=== PATIENT | female | born 1950 | race Caucasian/White ===

== ENCOUNTER 2023-12-04 18:13 | Emergency (ER) | payer MEDICARE ==
[2023-12-04] MEDS ORDERED: Proparacaine 0.5% Opth 15 ML BOT ONE (19:09)
[2023-12-04] MEDS ORDERED: Fluorescein Opthalmic Strip ONE (19:09)
[2023-12-04] MEDS ORDERED: Erythromycin Base 0.5% Oint 1 GM TUBE ONE (19:27)
== END 2023-12-04 19:38 | disposition home or self-care (01) ==
LOC: CSHERS 18:13
DX: T15.92XA Foreign body on external eye, part unspecified, left eye, initial encounter (principal); I10 Essential (primary) hypertension; E11.9 Type 2 diabetes mellitus without complications; Z55.6 Problems related to health literacy
CPT/HCPCS: 99283

== ENCOUNTER 2023-12-25 23:53 | Inpatient (IN) | payer MEDICARE ==
[2023-12-26 00:46] LABS: #Eosinphils 0.2 10x3/uL (0.0-0.5); #Monocytes 1.1 10x3/uL (0.0-1.1); #Neutrophils 4.8 10x3/uL (1.5-8.4); %Basophils 0.3 % (0.0-2.0); %Eosinophils 2.5 % (0.0-6.0); %Lymphocytes 15.9 % (18.0-47.0); %Monocytes 14.6 % (0.0-10.0); %Neutrophils 66.4 % (40.0-75.0); Hematocrit 34.6 % (34.9-44.5); Hemoglobin 11.2 g/dL (12.0-15.5); Mean Corpuscular HGB CONC 32.4 g/dL (32.0-36.0); Mean Corpuscular Hemoglobin 26.9 pg (27.0-33.0); Mean Platelet Volume 11.7 fl (7.4-10.4); Platelet Count 310 10x3/uL (150-450); RBC Distribution Width 15.2 % (11.5-14.5); Red Blood Cell (RBC) Count 4.17 10x6/uL (3.90-5.03); White Blood Cell (WBC) Count 7.2 10x3/uL (3.5-10.5)
[2023-12-26 01:02] LABS: ALT (SGPT) 27 U/L (8-55); AST (SGOT) 27 U/L (5-34); Albumin 3.3 g/dL (3.4-4.8); Alkaline Phosphatase 47 U/L (40-110); Anion Gap 16 mmol/L (10-20); BUN (Urea Nitrogen) 48 mg/dL (9.8-20.1); Bilirubin, Total 0.4 mg/dL (0.2-1.2); Calc. Creatinine Clearance 0 mL/min (70-130); Calcium 8.8 mg/dL (7.8-10.44); Carbon Dioxide 17 mmol/L (23-31); Chloride 105 mmol/L (98-107); Estimated GFR 21; Globulin 2.5 g/dL (2.4-3.5); Glucose 156 mg/dL (83-110); Potassium 4.2 mmol/L (3.5-5.1); Protein, Total 5.8 g/dL (5.8-8.1); Sodium 134 mmol/L (136-145)
[2023-12-26 01:07] LABS: Critical Call Chem Troponin I NUR.AEB @ 0106; Troponin I 0.396 ng/mL (< 0.028)
[2023-12-26] MEDS ORDERED: Aspirin Chewable 81 MG TAB ONE (01:35)
[2023-12-26] MEDS ORDERED: Ondansetron PF 4 MG/2 ML Vial IVP PRN (02:29)
[2023-12-26] MEDS ORDERED: Glucagon 1 MG/ML KIT IM PRN (02:29)
[2023-12-26] MEDS ORDERED: Dextrose 5% in Water 1,000 ML IV PRN (02:29)
[2023-12-26] MEDS ORDERED: Dextrose 50% Abboject 50 ML SYRINGE SLOW IVP PRN (02:29)
[2023-12-26] MEDS ORDERED: Enoxaparin 80 MG (0.8 mL) SYRINGE SC SCH (04:00)
[2023-12-26] MEDS ORDERED: NOREPINEPHRINE 8 MG/250 ML-D5W 250 ML ONE (04:24)
[2023-12-26] MEDS ORDERED: Heparin 10,000 UNITS/ 10 ML VIAL ONE (04:24)
[2023-12-26] MEDS ORDERED: Heparin 25,000 units/D5W 500 ML ONE (04:25)
[2023-12-26 04:28] LABS: Hematocrit 35.4 % (34.9-44.5); Hemoglobin 11.4 g/dL (12.0-15.5); Platelet Count 273 10x3/uL (150-450)
[2023-12-26 04:45] LABS: Troponin I 0.348 ng/mL (< 0.028)
[2023-12-26] MEDS: Lactated Ringer's 500 ML IV SCH ×2 (04:56→12:30)
[2023-12-26 04:59] VITALS: BMI 34.0
[2023-12-26] MEDS: VANCOMYCIN 1.75 GM/350 ML BAG 1.75 GM in Premix 1 BAG IVPB SCH (05:00)
[2023-12-26] MEDS: Heparin 25,000 units/D5W 500 ML IVPB SCH (05:13)
[2023-12-26] MEDS: Heparin 10,000 UNITS/ 10 ML VIAL SLOW IVP SCH (05:13)
[2023-12-26 05:30] LABS: Influenza A by NAA Not Detected (NotDetected); Influenza B by NAA Not Detected (NotDetected); RSV by NAA Not Detected (NotDetected); SARS-CoV-2 NAA Rapid Test DETECTED (NotDetected)
[2023-12-26] MEDS: NOREPINEPHRINE 8 MG/250 ML-D5W 250 ML IVPB SCH (05:45)
[2023-12-26] MEDS ORDERED: Vancomycin Dose by Levels Sliding Scale (Wt 71-99) FS SCH (06:00)
[2023-12-26] MEDS ORDERED: Cefepime 1 GM VIAL ONE (06:30)
[2023-12-26] MEDS ORDERED: Dexamethasone 10 MG/ML VIAL ONE (06:30)
[2023-12-26] MEDS: Cefepime 1 GM in Sodium Chloride 0.9% 100 ML IVPB SCH (06:37)
[2023-12-26] MEDS: Dexamethasone 4 mg/ml Vial SLOW IVP SCH (06:37)
[2023-12-26 07:48] LABS: #Monocytes 0.8 10x3/uL (0.0-1.1); #Neutrophils 4.9 10x3/uL (1.5-8.4); %Basophils 0.3 % (0.0-2.0); %Eosinophils 0.1 % (0.0-6.0); %Lymphocytes 17.9 % (18.0-47.0); %Monocytes 11.2 % (0.0-10.0); %Neutrophils 70.1 % (40.0-75.0); Hematocrit 34.7 % (34.9-44.5); Hemoglobin 11.2 g/dL (12.0-15.5); Mean Corpuscular HGB CONC 32.3 g/dL (32.0-36.0); Mean Corpuscular Hemoglobin 27.7 pg (27.0-33.0); Mean Corpuscular Volume 85.9 fl (81.6-98.3); Mean Platelet Volume 11.9 fl (7.4-10.4); Platelet Count 286 10x3/uL (150-450); RBC Distribution Width 15.3 % (11.5-14.5); Red Blood Cell (RBC) Count 4.04 10x6/uL (3.90-5.03)
[2023-12-26 08:15] LABS: PTT 137.2 sec (22.0-33.0)
[2023-12-26 09:08] LABS: Critical Call Chem Troponin I NUR.MBS@0906; Troponin I 0.324 ng/mL (< 0.028)
[2023-12-26 09:15] LABS: Anion Gap 17 mmol/L (10-20); BUN (Urea Nitrogen) 51 mg/dL (9.8-20.1); Calc. Creatinine Clearance 30 mL/min (70-130); Calcium 8.4 mg/dL (7.8-10.44); Carbon Dioxide 12 mmol/L (23-31); Chloride 106 mmol/L (98-107); Estimated GFR 23; Glucose 161 mg/dL (83-110); Potassium 4.4 mmol/L (3.5-5.1); Sodium 131 mmol/L (136-145)
[2023-12-26] MEDS: ALTEPLASE IVP SCH (09:34)
[2023-12-26 10:31] LABS: Bilirubin Neg (Negative); Blood, Urine Negative (Negative); Clarity Clear (Clear); Glucose, Urine (Dipstick) Normal (Negative); Ketone, Urine Negative (Negative); Leukocyte 25 (Negative); Nitrite Negative (Negative); Protein, Urine (Dipstick) 100 mg/dl (Neg-Trace); Urobilinogen Normal mg/dL (Less than 2)
[2023-12-26] MEDS: Trospium 20 MG TAB PO SCH (10:46)
[2023-12-26] MEDS: Aspirin 81 mg Enteric Coated Tablet PO SCH (10:46)
[2023-12-26] MEDS: Pantoprazole 40 MG VIAL IVP SCH (10:54)
[2023-12-26 11:37] LABS: Protein, Urine Random Quant 41 mg/dL (1-14)
[2023-12-26 12:05] LABS: Bacteria/HPF 1+ HPF (None Seen); RBC/HPF 0-3 HPF (0-3)
[2023-12-26 12:07] LABS: Calcium Oxalate Crystals Rare HPF (None Seen)
[2023-12-26] MEDS: hydrALAZINE 20 MG/ML VIAL SLOW IVP SCH (13:26)
[2023-12-26 14:01] LABS: Sodium, Urine 26 mmol/L (Not Available); Urea Nitrogen, Random Urine 534 mg/dl
[2023-12-26] MEDS: hydrALAZINE 25 MG TAB PO SCH (15:23)
[2023-12-26] MEDS: Carvedilol 3.125 MG TAB PO SCH (16:55)
[2023-12-26] MEDS: HumaLOG 300 UNITS/3 ML VIAL SC PRN (17:21)
[2023-12-26] MEDS: Guaifenesin DM 100-10/5 ML UDCUP PO PRN (17:21)
[2023-12-26] MEDS: Sodium Bicarbonate 150 MEQ in Dextrose 5% in Water 1,000 ML IV SCH (18:20)
[2023-12-26] MEDS: Atorvastatin Calcium 40 MG TAB PO SCH (20:10)
[2023-12-27 06:58] LABS: #Monocytes 0.8 10x3/uL (0.0-1.1); #Neutrophils 4.9 10x3/uL (1.5-8.4); %Basophils 0.3 % (0.0-2.0); %Lymphocytes 17.2 % (18.0-47.0); %Neutrophils 71.2 % (40.0-75.0); Hematocrit 28.2 % (34.9-44.5); Hemoglobin 9.4 g/dL (12.0-15.5); Mean Corpuscular HGB CONC 33.3 g/dL (32.0-36.0); Mean Platelet Volume 11.6 fl (7.4-10.4); Platelet Count 280 10x3/uL (150-450); RBC Distribution Width 15.4 % (11.5-14.5); Red Blood Cell (RBC) Count 3.48 10x6/uL (3.90-5.03); White Blood Cell (WBC) Count 6.8 10x3/uL (3.5-10.5)
[2023-12-27 08:19] LABS: Hematocrit 28.6 % (34.9-44.5); Hemoglobin 9.9 g/dL (12.0-15.5); Mean Corpuscular HGB CONC 34.6 g/dL (32.0-36.0); Mean Platelet Volume 11.8 fl (7.4-10.4); Platelet Count 282 10x3/uL (150-450); RBC Distribution Width 15.5 % (11.5-14.5); Red Blood Cell (RBC) Count 3.53 10x6/uL (3.90-5.03); White Blood Cell (WBC) Count 7.3 10x3/uL (3.5-10.5)
[2023-12-27 08:32] LABS: ALT (SGPT) 73 U/L (8-55); AST (SGOT) 63 U/L (5-34); Anion Gap 13 mmol/L (10-20); BUN (Urea Nitrogen) 20 mg/dL (9.8-20.1); Bilirubin, Total 0.3 mg/dL (0.2-1.2); Calc. Creatinine Clearance 71 mL/min (70-130); Carbon Dioxide 35 mmol/L (23-31); Chloride 92 mmol/L (98-107); Critical Call Chemistry NUR.MBS@0830; Estimated GFR 64; Globulin 2.1 g/dL (2.4-3.5); Glucose 444 mg/dL (83-110); Magnesium 1.7 mg/dL (1.6-2.6); Protein, Total 5.1 g/dL (5.8-8.1); Sodium 137 mmol/L (136-145)
[2023-12-27] MEDS: Magnesium 2 GM/50 ML(in water) 2 GM in Premix 1 BAG IVPB SCH ×2 (08:37→09:37)
[2023-12-27] MEDS: Potassium Chloride 20 MEQ TAB PO SCH (09:37)
[2023-12-27] MEDS: Sodium Chloride 0.9% 1,000 ML IV SCH (09:37)
[2023-12-27] MEDS: Potassium Chloride 20 MEQ in Premix 1 BAG IVPB SCH (09:44)
[2023-12-27] MEDS: Lisinopril 5 MG TAB PO SCH (10:05)
[2023-12-27] MEDS: Acetaminophen 325 MG TAB PO PRN (15:23)
[2023-12-28 03:17] LABS: #Neutrophils 3.7 10x3/uL (1.5-8.4); %Basophils 0.2 % (0.0-2.0); %Neutrophils 61.6 % (40.0-75.0); Hematocrit 31.3 % (34.9-44.5); Mean Corpuscular HGB CONC 31.9 g/dL (32.0-36.0); Mean Corpuscular Hemoglobin 26.4 pg (27.0-33.0); Mean Corpuscular Volume 82.6 fl (81.6-98.3); Platelet Count 308 10x3/uL (150-450); RBC Distribution Width 15.4 % (11.5-14.5); Red Blood Cell (RBC) Count 3.79 10x6/uL (3.90-5.03)
[2023-12-28 03:32] LABS: Anion Gap 12 mmol/L (10-20); BUN (Urea Nitrogen) 16 mg/dL (9.8-20.1); Calc. Creatinine Clearance 87 mL/min (70-130); Calcium 8.4 mg/dL (7.8-10.44); Carbon Dioxide 29 mmol/L (23-31); Chloride 100 mmol/L (98-107); Estimated GFR 83; Glucose 100 mg/dL (83-110); Potassium 3.2 mmol/L (3.5-5.1); Sodium 138 mmol/L (136-145)
[2023-12-28] MEDS: hydrALAZINE 20 MG/ML VIAL SLOW IVP PRN (04:20)
[2023-12-28] MEDS: Lisinopril 5 MG TAB PO SCH (08:15)
[2023-12-28 08:35] LABS: Magnesium 2.1 mg/dL (1.6-2.6)
[2023-12-28] MEDS: Apixaban 5 MG TAB PO SCH ×2 (08:57→20:45)
[2023-12-29 04:12] LABS: #Monocytes 0.9 10x3/uL (0.0-1.1); #Neutrophils 3.4 10x3/uL (1.5-8.4); %Basophils 0.2 % (0.0-2.0); %Lymphocytes 26.2 % (18.0-47.0); %Monocytes 15.9 % (0.0-10.0); %Neutrophils 57.5 % (40.0-75.0); Hematocrit 32.8 % (34.9-44.5); Hemoglobin 10.5 g/dL (12.0-15.5); Mean Corpuscular Hemoglobin 26.6 pg (27.0-33.0); Mean Platelet Volume 10.7 fl (7.4-10.4); Platelet Count 345 10x3/uL (150-450); RBC Distribution Width 15.5 % (11.5-14.5); Red Blood Cell (RBC) Count 3.95 10x6/uL (3.90-5.03); White Blood Cell (WBC) Count 5.9 10x3/uL (3.5-10.5)
[2023-12-29 04:23] LABS: Anion Gap 11 mmol/L (10-20); BUN (Urea Nitrogen) 18 mg/dL (9.8-20.1); Calc. Creatinine Clearance 85 mL/min (70-130); Calcium 8.8 mg/dL (7.8-10.44); Carbon Dioxide 26 mmol/L (23-31); Chloride 104 mmol/L (98-107); Estimated GFR 80; Glucose 93 mg/dL (83-110); Potassium 3.3 mmol/L (3.5-5.1); Sodium 138 mmol/L (136-145)
[2023-12-29] MEDS: Dexamethasone 4 MG TAB PO SCH (09:37)
[2023-12-29] MEDS: Potassium Chloride 20 MEQ TAB PO SCH (09:39)
[2023-12-29] MEDS: Lisinopril 5 MG TAB PO SCH ×2 (09:40→11:06)
[2023-12-29] MEDS: Zinc Sulfate 220 MG CAP PO SCH (11:06)
[2023-12-29 12:57] VITALS: BP 152/68; TEMP 96.6
[2023-12-30] MEDS ORDERED: Lisinopril 10 MG TAB PO SCH (09:00)
== END 2023-12-29 15:08 | disposition home or self-care (01) | DRG 177 ==
LOC: CSHERS 23:53 → CSHERHOLD 12-26 02:36 → CSHICU 12-26 09:30 → CSHTELE 12-28 16:48
PROVIDERS: ADMIT Student in an Organized Health Care Education/Training Program; ATTEND Internal Medicine
PROC: 3E033XZ Introduction of Vasopressor into Peripheral Vein, Percutaneous Approach (ICD-10-PCS; principal; 2023-12-26)
PROC: 3E0333Z Introduction of Anti-inflammatory into Peripheral Vein, Percutaneous Approach (ICD-10-PCS; 2023-12-26)
DX: U07.1 COVID-19 (principal); I21.A1 Myocardial infarction type 2; I26.99 Other pulmonary embolism without acute cor pulmonale; J96.01 Acute respiratory failure with hypoxia; J12.82 Pneumonia due to coronavirus disease 2019; N17.9 Acute kidney failure, unspecified; I82.403 Acute embolism and thrombosis of unspecified deep veins of lower extremity, bilateral; R57.9 Shock, unspecified; E87.21 Acute metabolic acidosis; I10 Essential (primary) hypertension; E78.5 Hyperlipidemia, unspecified; R19.7 Diarrhea, unspecified; E11.9 Type 2 diabetes mellitus without complications; N32.81 Overactive bladder; I27.20 Pulmonary hypertension, unspecified; E87.6 Hypokalemia; E83.42 Hypomagnesemia; Z85.3 Personal history of malignant neoplasm of breast; Z90.710 Acquired absence of both cervix and uterus; Z90.49 Acquired absence of other specified parts of digestive tract; Z98.890 Other specified postprocedural states; Z90.89 Acquired absence of other organs; Z82.49 Family history of ischemic heart disease and other diseases of the circulatory system; Z87.891 Personal history of nicotine dependence
CPT/HCPCS: 0241U; 36415; 36416; 71045; 71275; 74176; 80048; 80053; 81001; 82550; 82570; 83605; 83735; 83880; 84145; 84156; 84300; 84484; 84540; 85025; 85730; 86140; 93005; 93010; 93306; 93970; 94760; 94762; C9113; J0360; J0692; J1100; J1644; J1815; J2997; J3370; J3475; J3490; J7050; J7070; J7120; J8540

== ENCOUNTER 2024-03-06 20:27 | Emergency (ER) | payer MEDICARE | END 2024-03-06 23:44 | disposition home or self-care (01) | LOC: CSHERS 20:27 | DX: S70.01XA Contusion of right hip, initial encounter (principal); I10 Essential (primary) hypertension; E11.9 Type 2 diabetes mellitus without complications; W18.30XA Fall on same level, unspecified, initial encounter; Z79.01 Long term (current) use of anticoagulants; Z79.899 Other long term (current) drug therapy; Z00.00 Encounter for general adult medical examination without abnormal findings; E78.5 Hyperlipidemia, unspecified; N20.0 Calculus of kidney | CPT/HCPCS: 36415; 80053; 80061; 85025 ==

== ENCOUNTER 2024-09-03 14:25 | Outpatient (CLI) | payer MEDICARE | END 2024-09-03 14:26 | disposition home or self-care (01) | LOC: CSHMAMMO 14:25 | PROVIDERS: ATTEND Family Medicine | DX: Z12.31 Encounter for screening mammogram for malignant neoplasm of breast (principal); Z85.3 Personal history of malignant neoplasm of breast; Z98.890 Other specified postprocedural states | CPT/HCPCS: 77063; 77067 ==